=== PATIENT | male | born 1950 | race Caucasian/White ===

== ENCOUNTER 2020-04-09 08:52 | Emergency (ER) | payer MEDICARE, OTHER ==
[~2020-04-09] VITALS: Ht 182.9 cm; Wt 76.4 kg
[~2020-04-09 08:52] MED LIST: ALBU8HFA PO; ALLO100T PO; ASPI-611 PO; ATEN100T PO; ATOR20TA PO; MELO15TA13 PO; OMEP20CA15 PO; QUET25TA PO
[2020-04-09 09:29] LABS: BASOPHILS # (AUTO) 0.1 X10'3 (0-0.2); BASOPHILS % (AUTO) 0.8 % (0-1); EOSINOPHILS # (AUTO) 0.3 X10'3 (0-0.9); EOSINOPHILS % (AUTO) 5.3 % (0-6); HEMATOCRIT 39.4 % (42.0-52.0); HEMOGLOBIN 12.9 g/dl (14.0-17.9); LYMPHOCYTES # (AUTO) 1.9 X10'3 (1.1-4.8); LYMPHOCYTES % (AUTO) 29.4 % (21-51); MEAN CORPUSCULAR HGB CONC 32.8 g/dL (33.0-36.5); MEAN CORPUSCULAR VOLUME 91.3 FL (78-98); MEAN PLATELET VOLUME 7.5 FL (7.4-10.4); MONOCYTES # (AUTO) 0.7 X10'3 (0-0.9); MONOCYTES % (AUTO) 11.4 % (2-12); NEUTROPHILS # (AUTO) 3.4 X10'3 (1.8-7.7); NEUTROPHILS % (AUTO) 53.1 % (42-75); PLATELET COUNT 251 X10'3 (140-440); RED BLOOD COUNT 4.31 X10'6 (4.70-6.10); RED CELL DISTRIBUTION WIDTH 14.7 % (11.5-14.5); WHITE BLOOD COUNT 6.4 X10'3 (4.5-11.0)
[2020-04-09 09:39] LABS: ALANINE AMINOTRANSFERASE 16 U/L (12-78); ALBUMIN 3.1 G/DL (3.4-5.0); ALBUMIN/GLOBULIN RATIO 0.8 (1.1-1.5); ALKALINE PHOSPHATASE 97 IU/L (46-116); ANION GAP 9 (8-16); ASPARTATE AMINO TRANSFERASE 17 U/L (10-37); BILIRUBIN,TOTAL 0.5 MG/DL (0.1-1.0); BLOOD UREA NITROGEN 24 MG/DL (7-18); BUN/CREATININE RATIO 16.3 (5.4-32.0); CALCIUM 8.3 MG/DL (8.5-10.1); CHLORIDE 103 MMOL/L (99-107); CREATININE 1.47 MG/DL (0.60-1.10); GLUCOSE 100 MG/DL (70-104); LIPASE 169 U/L (73-393); POTASSIUM 4.2 MMOL/L (3.5-5.1); SODIUM 135 MMOL/L (135-145); TOTAL CARBON DIOXIDE 23.1 MMOL/L (24-32); TOTAL PROTEIN 6.8 G/DL (6.4-8.2); eGFR 47 ML/MIN
[2020-04-09 09:53] LABS: ETHANOL < 0.010 GM/DL (0.0-0.010)
--- NOTE | 2020-04-09 10:10 | NUR ---
Pt returned from CT no change in condtion.
[2020-04-09 11:11] VITALS: BP 164/91
== END 2020-04-09 11:00 | disposition home or self-care (01) ==
LOC: ER 08:53
DX: D64.9 Anemia, unspecified (principal); R10.9 Unspecified abdominal pain; N18.3 Chronic kidney disease, stage 3 (moderate); R19.7 Diarrhea, unspecified; I25.10 Atherosclerotic heart disease of native coronary artery without angina pectoris; E78.00 Pure hypercholesterolemia, unspecified; I25.2 Old myocardial infarction; J44.9 Chronic obstructive pulmonary disease, unspecified; K21.9 Gastro-esophageal reflux disease without esophagitis; I12.9 Hypertensive chronic kidney disease with stage 1 through stage 4 chronic kidney disease, or unspecified chronic kidney disease; G89.29 Other chronic pain; F41.9 Anxiety disorder, unspecified; R11.2 Nausea with vomiting, unspecified; F32.9 Major depressive disorder, single episode, unspecified; Z90.49 Acquired absence of other specified parts of digestive tract; Z86.73 Personal history of transient ischemic attack (TIA), and cerebral infarction without residual deficits; Z86.69 Personal history of other diseases of the nervous system and sense organs; Z86.19 Personal history of other infectious and parasitic diseases; Z98.890 Other specified postprocedural states; Z88.8 Allergy status to other drugs, medicaments and biological substances; Z79.82 Long term (current) use of aspirin; Z79.899 Other long term (current) drug therapy
CPT/HCPCS: 36415; 74176; 80053; 80320; 83690; 85025; 99284

== ENCOUNTER 2022-03-20 13:50 | Inpatient (IN) | payer OTHER, MEDICARE, MEDICAID ==
[~2022-03-20] VITALS: Ht 182.9 cm; Wt 86.1 kg
[2022-03-20] MEDS ORDERED: diltiazem 5mg/ml 5ml inj. IV ONE (14:10)
[2022-03-20] MEDS ORDERED: normal saline 1000ml 1,000 ML IV ONE (14:10)
[2022-03-20] MEDS ORDERED: proCHLORperazine 10 MG/2 ml inj IV ONE (14:20)
[2022-03-20 14:36] LABS: BASOPHILS # (AUTO) 0.1 X10'3 (0-0.2); EOSINOPHILS # (AUTO) 0.2 X10'3 (0-0.9); EOSINOPHILS % (AUTO) 2.9 % (0-6); HEMATOCRIT 44.9 % (42.0-52.0); HEMOGLOBIN 14.8 g/dl (14.0-17.9); LYMPHOCYTES # (AUTO) 1.5 X10'3 (1.1-4.8); LYMPHOCYTES % (AUTO) 22.1 % (21-51); MEAN CORPUSCULAR HEMOGLOBIN 31.6 PG (27.0-31.0); MEAN CORPUSCULAR HGB CONC 32.9 g/dL (33.0-36.5); MEAN PLATELET VOLUME 7.8 FL (7.4-10.4); MONOCYTES # (AUTO) 0.5 X10'3 (0-0.9); MONOCYTES % (AUTO) 6.8 % (2-12); NEUTROPHILS # (AUTO) 4.7 X10'3 (1.8-7.7); NEUTROPHILS % (AUTO) 67.2 % (42-75); PLATELET COUNT 220 X10'3 (140-440); RED BLOOD COUNT 4.67 X10'6 (4.70-6.10); RED CELL DISTRIBUTION WIDTH 14.9 % (11.5-14.5)
[2022-03-20] MEDS: diltiazem-NS 100mg/100ml 100 ML IV SCH (14:48)
[2022-03-20 14:51] LABS: ALANINE AMINOTRANSFERASE 19 U/L (12-78); ALBUMIN/GLOBULIN RATIO 0.9 (1.1-1.5); ALKALINE PHOSPHATASE 129 IU/L (46-116); ANION GAP 10 (8-16); ASPARTATE AMINO TRANSFERASE 23 U/L (10-37); BILIRUBIN,TOTAL 0.5 MG/DL (0.1-1.0); BLOOD UREA NITROGEN 25 MG/DL (7-18); BUN/CREATININE RATIO 10.5 (5.4-32.0); CALCIUM 9.3 MG/DL (8.5-10.1); CHLORIDE 104 MMOL/L (99-107); CREATININE 2.37 MG/DL (0.60-1.10); GLUCOSE 113 MG/DL (70-104); POTASSIUM 5.7 MMOL/L (3.5-5.1); SODIUM 140 MMOL/L (135-145); TOTAL CARBON DIOXIDE 26.1 MMOL/L (24-32); TOTAL PROTEIN 8.5 G/DL (6.4-8.2); eGFR 27 ML/MIN
[2022-03-20 14:59] LABS: ETHANOL < 0.010 GM/DL (0.0-0.010); MAGNESIUM 1.9 MG/DL (1.5-2.4)
--- NOTE | 2022-03-20 15:02 | NUR ---
ATTEMPTED TO GIVE CARDIZEM THROUGH LEFT HAND 20G FIELD START AFTER FLUSHING WITH NS PRIOR MED INFULATRATED INTO HAND. DR LUCIA NOTIFED. NEW IV STARTED WITH US BY MARIEL SAUCEDO TO RIGHT FA.
[2022-03-20] MEDS ORDERED: magnesium 2GM in 50ml NS 50 ML IV PRN (16:35)
[2022-03-20] MEDS ORDERED: magnesium Cl slow-release 64mg tablet PO PRN (16:35)
[2022-03-20] MEDS ORDERED: metoclopramide 5 mg/ml inj IV PRN (16:35)
[2022-03-20] MEDS ORDERED: POTASSIUM BICARB 20meq eff tab 20 MEQ TABLET.EFF PO PRN ×2 (16:35)
[2022-03-20] MEDS ORDERED: ondansetron 4mg rapidly disintigrating tab PO PRN (16:35)
[2022-03-20] MEDS ORDERED: magnesium 4gm in 100ml NS 100 ML IV PRN (16:35)
[2022-03-20] MEDS ORDERED: potassium CL 10mEq/100ml bag 100 ML IV PRN (16:35)
[2022-03-20 17:42] LABS: POTASSIUM 5.2 MMOL/L (3.5-5.1)
[2022-03-20] MEDS: docusate sod 100mg capsule PO SCH (20:00)
[2022-03-20] MEDS: K and/or MAG REPLACEMENT MC SCH (20:00)
--- NOTE | 2022-03-20 21:59 | NUR ---
PT'S SON, NICOLETTE, CALLED WANTING AN UPDATE ON THE PT. UPDATE PROVIDED. NICOLETTE WOULD APPRECIATE A FOLLOW-UP UPDATE AT 0800HRS VIA HIS CELL @ [phone].
[2022-03-21 01:54] LABS: BASOPHILS # (AUTO) 0.1 X10'3 (0-0.2); BASOPHILS % (AUTO) 0.5 % (0-1); EOSINOPHILS % (AUTO) 0.1 % (0-6); HEMATOCRIT 48.6 % (42.0-52.0); HEMOGLOBIN 16.1 g/dl (14.0-17.9); LYMPHOCYTES # (AUTO) 0.6 X10'3 (1.1-4.8); LYMPHOCYTES % (AUTO) 4.6 % (21-51); MEAN CORPUSCULAR HEMOGLOBIN 31.6 PG (27.0-31.0); MEAN CORPUSCULAR HGB CONC 33.2 g/dL (33.0-36.5); MEAN CORPUSCULAR VOLUME 95.3 FL (78-98); MEAN PLATELET VOLUME 7.6 FL (7.4-10.4); MONOCYTES # (AUTO) 0.5 X10'3 (0-0.9); MONOCYTES % (AUTO) 3.7 % (2-12); NEUTROPHILS # (AUTO) 11.9 X10'3 (1.8-7.7); NEUTROPHILS % (AUTO) 91.1 % (42-75); PLATELET COUNT 222 X10'3 (140-440)
[2022-03-21 02:04] LABS: ALBUMIN 4.2 G/DL (3.4-5.0); ANION GAP 18 (8-16); BLOOD UREA NITROGEN 23 MG/DL (7-18); BUN/CREATININE RATIO 9.7 (5.4-32.0); CALCIUM 9.7 MG/DL (8.5-10.1); CHLORIDE 106 MMOL/L (99-107); CREATININE 2.36 MG/DL (0.60-1.10); GLUCOSE 172 MG/DL (70-104); MAGNESIUM 1.8 MG/DL (1.5-2.4); SODIUM 149 MMOL/L (135-145); eGFR 27 ML/MIN
[2022-03-21] MEDS ORDERED: ondansetron/PF 4mg/2ml inj IV ONE (06:40)
[2022-03-21] MEDS ORDERED: niCARDipine-NS 40mg/200ml IVPB 200 ML IV SCH (06:40)
--- NOTE | 2022-03-21 06:40 | NUR ---
spoke to dr mc and informed that pt hr is 114 and is on cardizem 15 ml/hr ,as the assisgned rn kept it running at 15 since yesterday .pt bp is 202/110 mmHg also pt is vomiting recived reglan at 0433 without any improvement .as per md order nicardipine per pcu protocol keep bp in btw 150-140 mmHg,give zofran 8 mg iv once. will follow the md orders.
[2022-03-21] MEDS: diltiazem-NS 100mg/100ml 100 ML IV SCH ×2 (07:00→14:23)
[2022-03-21] MEDS ORDERED: METO-411 PO (07:57)
[2022-03-21] MEDS ORDERED: FLO0.4C PO (07:57)
[2022-03-21] MEDS ORDERED: TRAZ-251 PO (07:57)
[2022-03-21] MEDS ORDERED: LOSA50TA64 PO (07:57)
[2022-03-21] MEDS ORDERED: SERT-433 PO (07:57)
[2022-03-21] MEDS ORDERED: APIX5TAB3 PO (07:57)
[2022-03-21] MEDS ORDERED: LORA-949 PO (07:57)
[2022-03-21] MEDS ORDERED: QUET25TA36 PO (07:57)
[2022-03-21] MEDS ORDERED: OMEP20CA16 PO (07:57)
[2022-03-21] MEDS ORDERED: CLON0.1T2 PO (07:57)
[2022-03-21] MEDS ORDERED: ASPI-1397 PO (07:57)
[2022-03-21] MEDS ORDERED: FURO20TA4 PO (07:57)
[2022-03-21] MEDS ORDERED: ATOR40TA72 PO (07:57)
[2022-03-21] MEDS ORDERED: DIVA250T8 PO (07:57)
[2022-03-21] MEDS ORDERED: CARB1TAB37 PO (07:57)
[2022-03-21] MEDS: K and/or MAG REPLACEMENT MC SCH ×2 (08:00→20:00)
[2022-03-21] MEDS: docusate sod 100mg capsule PO SCH ×2 (08:00→20:41)
[2022-03-21] MEDS: tamsulosin 0.4mg capsule PO SCH (10:30)
[2022-03-21] MEDS: divalproex sod 250mg ER (24-hour) tablet PO SCH (10:30)
[2022-03-21] MEDS: sertraline 50mg tablet PO SCH (10:30)
[2022-03-21] MEDS: aspirin 81mg, enteric-coated 1 TAB TABLET.DR PO SCH (10:30)
--- NOTE | 2022-03-21 10:47 | NUR ---
NON ADMIN THE ORAL MEDS PT VOMIT RGT AWAY AFTER TAKING EVEN A SIP OF WATER MD ELAINE WAS NOTIFIED EARLIER THAT PT CAN'T KEEP ANYTHIG DOWN AND KEPT NPO.
[2022-03-21] MEDS: pantoprazole 40MG/NS 100ML BAG 100 ML IV SCH (10:59)
[2022-03-21] MEDS: ondansetron/PF 4mg/2ml inj IV PRN ×2 (11:13→20:37)
--- NOTE | 2022-03-21 11:14 | NUR ---
pt had 3 episode of vomiting since 0630 AM ,give zofran prn ,changed the bed linen and gown with help of tseven tenorio .
[2022-03-21] MEDS ORDERED: LIDOcaine 2% 10ml TOPICAL JELLY (Urojet) TP ONE (11:30)
[2022-03-21 12:28] LABS: CLARITY,URINE CLEAR (Clear); COLOR,URINE YELLOW (Yellow); GLUCOSE, URINE NEGATIVE (Neg); KETONES,URINE TRACE mg/dl (Neg); LEUKOCYTE ESTERASE ,URINE NEGATIVE (Neg); NITRITES, URINE NEGATIVE (Neg); OCCULT BLOOD,URINE TRACE-INTACT (Neg); PH,URINE 7.5 (4.8-8.0); PROTEIN,URINE 100 mg/dl (Neg); UA COLLECTION TYPE FOLEY CATH; UROBILINOGEN,URINE 0.2 E.U/dL (0.2-1.0)
[2022-03-21 12:33] LABS: SQUAMOUS EPITHELIAL CELL,UR FEW /LPF (FEW)
[2022-03-21 12:34] LABS: BACTERIA,URINE 1+ /HPF (Neg); RBC,URINE 0-2 /HPF (0-2); RENAL CELLS, URINE FEW /HPF; WBC,URINE 0-4 /HPF (0-4)
[2022-03-21] MEDS: carbidoba-levodopa 25-100mg tablet PO SCH ×2 (13:00→23:07)
[2022-03-21 14:00] VITALS: BP 129/65
[2022-03-21] MEDS: niCARDipine-NS 40mg/200ml IVPB 200 ML IV SCH ×2 (14:23→21:53)
[2022-03-21 18:00] VITALS: BP 131/63
[2022-03-21] MEDS: cloNIDine 0.1 mg tablet PO SCH (20:39)
[2022-03-21] MEDS: traZODone 50mg tablet PO SCH (20:40)
[2022-03-21] MEDS: QUEtiapine 25mg tablet PO SCH (20:40)
[2022-03-21 22:00] VITALS: BP 120/59
[2022-03-22 02:00] VITALS: BP 112/60
[2022-03-22 05:51] LABS: BASOPHILS % (AUTO) 0.2 % (0-1); EOSINOPHILS % (AUTO) 0 % (0-6); HEMATOCRIT 43.6 % (42.0-52.0); HEMOGLOBIN 14.3 g/dl (14.0-17.9); LYMPHOCYTES % (AUTO) 6.6 % (21-51); MEAN CORPUSCULAR HEMOGLOBIN 31.3 PG (27.0-31.0); MEAN CORPUSCULAR HGB CONC 32.9 g/dL (33.0-36.5); MEAN CORPUSCULAR VOLUME 95.2 FL (78-98); MEAN PLATELET VOLUME 7.7 FL (7.4-10.4); MONOCYTES # (AUTO) 1.4 X10'3 (0-0.9); NEUTROPHILS # (AUTO) 13.3 X10'3 (1.8-7.7); NEUTROPHILS % (AUTO) 84.2 % (42-75); PLATELET COUNT 259 X10'3 (140-440); RED BLOOD COUNT 4.58 X10'6 (4.70-6.10); RED CELL DISTRIBUTION WIDTH 15.1 % (11.5-14.5); WHITE BLOOD COUNT 15.8 X10'3 (4.5-11.0)
[2022-03-22 06:00] VITALS: BP 137/67
--- NOTE | 2022-03-22 06:00 | NUR ---
RECIEVED REPORT FROM DANIELLA
[2022-03-22 06:04] LABS: ALBUMIN 3.5 G/DL (3.4-5.0); ANION GAP 13 (8-16); BLOOD UREA NITROGEN 40 MG/DL (7-18); CHLORIDE 110 MMOL/L (99-107); CREATININE 4.01 MG/DL (0.60-1.10); GLUCOSE 142 MG/DL (70-104); MAGNESIUM 1.9 MG/DL (1.5-2.4); POTASSIUM 4.9 MMOL/L (3.5-5.1); SODIUM 147 MMOL/L (135-145); TOTAL CARBON DIOXIDE 23.6 MMOL/L (24-32); eGFR 15 ML/MIN
[2022-03-22] MEDS: diltiazem-NS 100mg/100ml 100 ML IV SCH ×2 (07:30→21:12)
[2022-03-22] MEDS: K and/or MAG REPLACEMENT MC SCH ×2 (08:00→20:00)
[2022-03-22] MEDS: carbidoba-levodopa 25-100mg tablet PO SCH ×3 (08:00→19:55)
[2022-03-22] MEDS: pantoprazole 40MG/NS 100ML BAG 100 ML IV SCH (09:10)
[2022-03-22] MEDS: sertraline 50mg tablet PO SCH (09:12)
[2022-03-22] MEDS: docusate sod 100mg capsule PO SCH ×2 (09:12→19:55)
[2022-03-22] MEDS: atorvastatin 20mg tablet PO SCH (09:12)
[2022-03-22] MEDS: tamsulosin 0.4mg capsule PO SCH (09:13)
[2022-03-22] MEDS: metoprolol succinate 25mg (24-HOUR) SR. Tablet PO SCH (09:13)
[2022-03-22] MEDS: aspirin 81mg, enteric-coated 1 TAB TABLET.DR PO SCH (09:13)
[2022-03-22] MEDS: cloNIDine 0.1 mg tablet PO SCH ×2 (09:14→19:55)
--- NOTE | 2022-03-22 09:44 | NUR ---
Orders to increase Cardizem gtt from 5 to 7 and DC cardene drip put in per Dr. Fraser.
[2022-03-22] MEDS: sodium chloride 0.45% 1,000 ML IV SCH ×3 (10:35→23:48)
[2022-03-22 11:00] VITALS: BP 109/63
[2022-03-22] MEDS: divalproex sod 250mg ER (24-hour) tablet PO SCH (13:05)
[2022-03-22 15:00] VITALS: BP 118/68
[2022-03-22 15:09] LABS: ALBUMIN 3.2 G/DL (3.4-5.0); ANION GAP 14 (8-16); BLOOD UREA NITROGEN 44 MG/DL (7-18); BUN/CREATININE RATIO 11.3 (5.4-32.0); CALCIUM 8.6 MG/DL (8.5-10.1); CHLORIDE 106 MMOL/L (99-107); CREATININE 3.91 MG/DL (0.60-1.10); GLUCOSE 102 MG/DL (70-104); SODIUM 141 MMOL/L (135-145); eGFR 15 ML/MIN
[2022-03-22 15:11] LABS: POTASSIUM 5.7 MMOL/L (3.5-5.1)
[2022-03-22] MEDS ORDERED: dextrose 50%-water 50ml dispensing syringe IV ONE (17:00)
[2022-03-22] MEDS ORDERED: calcium chloride 100 MG/1 ML inj IV ONE (17:00)
[2022-03-22] MEDS ORDERED: insulin regular, human 10 units/0.1 ml syringe SQ ONE (17:00)
[2022-03-22] MEDS ORDERED: albuterol 2.5 MG/3 ML nebule CONTNEB SCH (17:00)
[2022-03-22 18:00] VITALS: BP 126/69
--- NOTE | 2022-03-22 18:32 | NUR ---
REPORT GIVEN TO ALEJANDRA
[2022-03-22] MEDS: traZODone 50mg tablet PO SCH (19:55)
[2022-03-22] MEDS: QUEtiapine 25mg tablet PO SCH (19:55)
[2022-03-22 20:43] LABS: ANION GAP 10 (8-16); BLOOD UREA NITROGEN 45 MG/DL (7-18); CALCIUM 8.9 MG/DL (8.5-10.1); CHLORIDE 101 MMOL/L (99-107); CREATININE 3.47 MG/DL (0.60-1.10); GLUCOSE 118 MG/DL (70-104); POTASSIUM 4.9 MMOL/L (3.5-5.1); SODIUM 134 MMOL/L (135-145); TOTAL CARBON DIOXIDE 22.9 MMOL/L (24-32); eGFR 18 ML/MIN
[2022-03-23 06:00] VITALS: BP 139/68
[2022-03-23 06:23] LABS: EOSINOPHILS # (AUTO) 0.1 X10'3 (0-0.9)
[2022-03-23 06:25] LABS: BASOPHILS # (AUTO) 0.1 X10'3 (0-0.2); BASOPHILS % (AUTO) 0.5 % (0-1); EOSINOPHILS % (AUTO) 0.4 % (0-6); HEMATOCRIT 43.1 % (42.0-52.0); HEMOGLOBIN 14.1 g/dl (14.0-17.9); LYMPHOCYTES # (AUTO) 1.4 X10'3 (1.1-4.8); MEAN CORPUSCULAR HEMOGLOBIN 31.5 PG (27.0-31.0); MEAN CORPUSCULAR HGB CONC 32.6 g/dL (33.0-36.5); MEAN CORPUSCULAR VOLUME 96.7 FL (78-98); MEAN PLATELET VOLUME 8.3 FL (7.4-10.4); MONOCYTES # (AUTO) 0.8 X10'3 (0-0.9); MONOCYTES % (AUTO) 5.9 % (2-12); NEUTROPHILS # (AUTO) 11.7 X10'3 (1.8-7.7); NEUTROPHILS % (AUTO) 83.2 % (42-75); PLATELET COUNT 153 X10'3 (140-440); RED BLOOD COUNT 4.46 X10'6 (4.70-6.10); RED CELL DISTRIBUTION WIDTH 15.3 % (11.5-14.5); WHITE BLOOD COUNT 14.1 X10'3 (4.5-11.0)
[2022-03-23 06:48] LABS: ANION GAP 15 (8-16); BLOOD UREA NITROGEN 46 MG/DL (7-18); CALCIUM 8.7 MG/DL (8.5-10.1); CHLORIDE 101 MMOL/L (99-107); CREATININE 3.07 MG/DL (0.60-1.10); GLUCOSE 92 MG/DL (70-104); MAGNESIUM 1.7 MG/DL (1.5-2.4); SODIUM 138 MMOL/L (135-145); TOTAL CARBON DIOXIDE 22.4 MMOL/L (24-32); eGFR 20 ML/MIN
[2022-03-23 06:53] LABS: POTASSIUM 5.2 MMOL/L (3.5-5.1)
[2022-03-23] MEDS: metoprolol succinate 25mg (24-HOUR) SR. Tablet PO SCH ×2 (08:00→10:15)
[2022-03-23] MEDS: atorvastatin 20mg tablet PO SCH (08:00)
[2022-03-23] MEDS: docusate sod 100mg capsule PO SCH ×2 (08:00→20:41)
[2022-03-23] MEDS: aspirin 81mg, enteric-coated 1 TAB TABLET.DR PO SCH ×2 (08:00→10:15)
[2022-03-23] MEDS: tamsulosin 0.4mg capsule PO SCH (08:00)
[2022-03-23] MEDS: divalproex sod 250mg ER (24-hour) tablet PO SCH (08:00)
[2022-03-23] MEDS: K and/or MAG REPLACEMENT MC SCH ×2 (08:00→20:00)
[2022-03-23] MEDS: sertraline 50mg tablet PO SCH (08:00)
[2022-03-23] MEDS: pantoprazole 40MG/NS 100ML BAG 100 ML IV SCH (08:46)
[2022-03-23] MEDS: sodium chloride 0.45% 1,000 ML IV SCH (08:46)
[2022-03-23] MEDS: cloNIDine 0.1 mg tablet PO SCH ×2 (08:47→20:41)
[2022-03-23] MEDS: carbidoba-levodopa 25-100mg tablet PO SCH ×3 (08:48→20:41)
[2022-03-23] MEDS: diltiazem-NS 100mg/100ml 100 ML IV SCH (09:25)
--- NOTE | 2022-03-23 09:51 | NUR ---
PAGER ID: [phone] MESSAGE: Room: 5795B: Jenny: I was only successful in getting this pt to swallow his sinemet and clonidine PO. Otherwise, he would continue to hold pills in his mouth while still being able to swallow water and applesauce. LEWIS Crowder [id number]
[2022-03-23 11:00] VITALS: BP 119/59
[2022-03-23] MEDS ORDERED: valproate sod 250mg/5ml UD oral syrup PO ONE (11:25)
--- NOTE | 2022-03-23 13:40 | NUR ---
PAGER ID: [phone] MESSAGE: Room: 3025B: Jenny: Pt is on a nonrebreather after being found off of his oxygen. We're unable to get his oxygen up past 90%. Lung sounds are very diminished on the left side. Holding his 1300 sinemet. LEWIS Crowder [id number]
[2022-03-23] MEDS ORDERED: albuterol 2.5 MG/3 ML nebule CONTNEB ONE (13:50)
[2022-03-23] MEDS ORDERED: albuterol 2.5 MG/3 ML nebule NEB PRN (13:50)
[2022-03-23 14:13] LABS: ALBUMIN 2.7 G/DL (3.4-5.0); ALBUMIN/GLOBULIN RATIO 0.7 (1.1-1.5); ALKALINE PHOSPHATASE 73 IU/L (46-116); ANION GAP 15 (8-16); ASPARTATE AMINO TRANSFERASE 42 U/L (10-37); BILIRUBIN,TOTAL 0.9 MG/DL (0.1-1.0); BLOOD UREA NITROGEN 49 MG/DL (7-18); BUN/CREATININE RATIO 18.1 (5.4-32.0); CHLORIDE 101 MMOL/L (99-107); CREATININE 2.71 MG/DL (0.60-1.10); GLUCOSE 105 MG/DL (70-104); POTASSIUM 4.5 MMOL/L (3.5-5.1); SODIUM 135 MMOL/L (135-145); TOTAL CARBON DIOXIDE 19.3 MMOL/L (24-32); TOTAL PROTEIN 6.5 G/DL (6.4-8.2); eGFR 23 ML/MIN
[2022-03-23 14:20] LABS: ABG BASE EXCESS -3.8 mmol/L (-2.0-2.0); ABG HCO3 19.3 mmol/L (22.0-26.0); ABG OXYGEN SATURATION 90.6 % (94-97); ABG PCO2 (T) 29.6 mmHg (35.0-48.0); ABG PO2 (T) 59.4 mmHg (75.0-100.0); FCOHb 0.3 % (0.0-3.9); FLOW 15 L/min; FMetHb 0.3 % (0.0-1.5); FO2Hb 90.1 % (94-97)
[2022-03-23] MEDS ORDERED: furosemide 20 MG/2 ML vial IV ONE (14:20)
[2022-03-23 14:30] LABS: ALANINE AMINOTRANSFERASE < 6 U/L (12-78)
[2022-03-23] MEDS: ipratropium/albuterol 3ml nebule NEB SCH ×3 (14:33→23:52)
[2022-03-23 15:00] VITALS: BP 107/55
[2022-03-23 16:34] LABS: D-DIMER > 35.20 MG/L FEU (0-0.50)
[2022-03-23 18:00] VITALS: BP 159/104
[2022-03-23] MEDS: traZODone 50mg tablet PO SCH (20:41)
[2022-03-23] MEDS: QUEtiapine 25mg tablet PO SCH (20:41)
[2022-03-23 22:00] VITALS: BP 142/79
[2022-03-24] MEDS: diltiazem-NS 100mg/100ml 100 ML IV SCH (00:35)
[2022-03-24 02:00] VITALS: BP 132/86
[2022-03-24] MEDS: ipratropium/albuterol 3ml nebule NEB SCH ×6 (03:11→23:02)
[2022-03-24 06:00] VITALS: BP 165/76
[2022-03-24 06:20] LABS: ALBUMIN 2.8 G/DL (3.4-5.0); ANION GAP 11 (8-16); BLOOD UREA NITROGEN 48 MG/DL (7-18); BUN/CREATININE RATIO 21.1 (5.4-32.0); CALCIUM 8.4 MG/DL (8.5-10.1); CHLORIDE 102 MMOL/L (99-107); CREATININE 2.27 MG/DL (0.60-1.10); GLUCOSE 99 MG/DL (70-104); MAGNESIUM 1.7 MG/DL (1.5-2.4); SODIUM 136 MMOL/L (135-145); TOTAL CARBON DIOXIDE 23.2 MMOL/L (24-32); eGFR 29 ML/MIN
[2022-03-24 06:22] LABS: POTASSIUM 4.7 MMOL/L (3.5-5.1)
[2022-03-24] MEDS: pantoprazole 40MG/NS 100ML BAG 100 ML IV SCH (07:46)
[2022-03-24] MEDS: valproate sod 250mg/5ml UD oral syrup PO SCH (07:46)
[2022-03-24] MEDS: atorvastatin 20mg tablet PO SCH (07:47)
[2022-03-24] MEDS: aspirin 81mg, enteric-coated 1 TAB TABLET.DR PO SCH (07:47)
[2022-03-24] MEDS: cloNIDine 0.1 mg tablet PO SCH ×2 (07:47→20:19)
[2022-03-24] MEDS: docusate sod 100mg capsule PO SCH ×2 (07:47→20:19)
[2022-03-24] MEDS: tamsulosin 0.4mg capsule PO SCH (07:48)
[2022-03-24] MEDS: carbidoba-levodopa 25-100mg tablet PO SCH ×3 (07:48→20:19)
[2022-03-24] MEDS: sertraline 50mg tablet PO SCH (07:48)
[2022-03-24] MEDS: metoprolol succinate 25mg (24-HOUR) SR. Tablet PO SCH (07:48)
[2022-03-24] MEDS: K and/or MAG REPLACEMENT MC SCH ×2 (07:57→20:00)
[2022-03-24] MEDS ORDERED: furosemide 20 MG/2 ML vial IV ONE (08:40)
[2022-03-24] MEDS ORDERED: heparin 25,000 UNIT/250ml bag 250 ML IV SCH (08:40)
[2022-03-24] MEDS ORDERED: heparin 10,000 units/1 ML INJ IV PRN (08:40)
[2022-03-24] MEDS ORDERED: heparin 10,000 units/1 ML INJ IV ONE (08:40)
--- NOTE | 2022-03-24 08:50 | NUR ---
PAGER ID: [phone] MESSAGE: Room: 411: Jenny: Anaerobic blood culture from 03/23 is positive for gram positive cocci in clusters. LEWIS Crowder [id number]
[2022-03-24] MEDS: diltiazem 30mg tablet PO SCH ×3 (09:43→20:19)
--- NOTE | 2022-03-24 10:33 | NUR ---
PAGER ID: [phone] MESSAGE: Room: 3025B: Itzer: Critical result: Positive blood culture in aerobic bottle. Gram positive cocci in clusters. LEWIS Crowder [id number]
[2022-03-24 11:00] VITALS: BP 129/60
[2022-03-24] MEDS: levoFLOXACIN-Levaquin 750MG/D5 150 ML IV SCH (11:10)
[2022-03-24 11:48] LABS: BASOPHILS % (AUTO) 0.3 % (0-1); EOSINOPHILS # (AUTO) 0.1 X10'3 (0-0.9); HEMOGLOBIN 13.4 g/dl (14.0-17.9); MEAN CORPUSCULAR VOLUME 95.2 FL (78-98)
[2022-03-24 11:51] LABS: EOSINOPHILS % (AUTO) 0.5 % (0-6); HEMATOCRIT 39.7 % (42.0-52.0); LYMPHOCYTES # (AUTO) 1.1 X10'3 (1.1-4.8); LYMPHOCYTES % (AUTO) 12.3 % (21-51); MEAN CORPUSCULAR HEMOGLOBIN 32.1 PG (27.0-31.0); MEAN CORPUSCULAR HGB CONC 33.8 g/dL (33.0-36.5); MEAN PLATELET VOLUME 8.2 FL (7.4-10.4); MONOCYTES # (AUTO) 0.8 X10'3 (0-0.9); MONOCYTES % (AUTO) 8.9 % (2-12); NEUTROPHILS # (AUTO) 7.2 X10'3 (1.8-7.7); RED BLOOD COUNT 4.17 X10'6 (4.70-6.10); RED CELL DISTRIBUTION WIDTH 14.5 % (11.5-14.5); WHITE BLOOD COUNT 9.2 X10'3 (4.5-11.0)
[2022-03-24 12:16] LABS: LARGE PLATELETS FEW; PLATELET ESTIMATE NORMAL
--- NOTE | 2022-03-24 12:30 | NUR ---
PAGER ID: [phone] MESSAGE: Room: 3025B: Itzer: Critical Result: Positive blood cultures. Gram positive cocci in clusters in the anaerobic bottle. Lakesha Fraser [id number]
[2022-03-24 15:00] VITALS: BP 105/67
[2022-03-24] MEDS ORDERED: PERFLUTREN PROTEIN-A MICROSPHR (Optison) 0.22 MG/ML 3ML VIAL IV ONE (17:15)
[2022-03-24 18:00] VITALS: BP 114/72
--- NOTE | 2022-03-24 18:25 | NUR ---
Patient in room U 3025. I have received report from Lakesha SAUCEDO and had the opportunity to ask questions and assume patient care. Addendum: 03/24/22 at 1826 by Komal Phillip RN Amended: Links added.
--- NOTE | 2022-03-24 18:30 | NUR ---
Patient in room U 3025. I have received report from DONNA SAUCEDO and had the opportunity to ask questions and assume patient care. Addendum: 03/24/22 at 1857 by Komal Phillip RN Amended: Links added.
[2022-03-24] MEDS: traZODone 50mg tablet PO SCH (20:19)
[2022-03-24] MEDS: QUEtiapine 25mg tablet PO SCH (20:19)
[2022-03-24] MEDS: furosemide 20 MG/2 ML vial IV SCH (20:20)
--- NOTE | 2022-03-24 20:20 | NUR ---
Pt. awake alert to own name and place- reoriented patient to place and events. No c/o chest pain at this time. f/c draining to gravity; with adequate volume noted in the collecting bag. Call light within reach and bed in low position. Addendum: 03/25/22 at 0132 by Komal Phillip RN Amended: Links added.
[2022-03-24 22:00] VITALS: BP 135/69
[2022-03-25 02:00] VITALS: BP 147/77
[2022-03-25] MEDS: diltiazem 30mg tablet PO SCH ×4 (02:05→20:55)
[2022-03-25] MEDS: ipratropium/albuterol 3ml nebule NEB SCH ×6 (03:03→23:38)
[2022-03-25 07:00] VITALS: BP 158/60
[2022-03-25 07:01] LABS: BASOPHILS % (AUTO) 0.4 % (0-1); EOSINOPHILS # (AUTO) 0.1 X10'3 (0-0.9); EOSINOPHILS % (AUTO) 2.1 % (0-6); HEMOGLOBIN 13.4 g/dl (14.0-17.9); LYMPHOCYTES # (AUTO) 1.1 X10'3 (1.1-4.8); MEAN CORPUSCULAR HEMOGLOBIN 31.6 PG (27.0-31.0); MEAN CORPUSCULAR HGB CONC 33.5 g/dL (33.0-36.5); MEAN CORPUSCULAR VOLUME 94.3 FL (78-98); MEAN PLATELET VOLUME 8.4 FL (7.4-10.4); MONOCYTES # (AUTO) 0.7 X10'3 (0-0.9); MONOCYTES % (AUTO) 11.5 % (2-12); NEUTROPHILS # (AUTO) 4.1 X10'3 (1.8-7.7); PLATELET COUNT 203 X10'3 (140-440); RED BLOOD COUNT 4.24 X10'6 (4.70-6.10); RED CELL DISTRIBUTION WIDTH 14.6 % (11.5-14.5)
[2022-03-25 07:18] LABS: ALBUMIN 2.7 G/DL (3.4-5.0); ANION GAP 15 (8-16); BLOOD UREA NITROGEN 48 MG/DL (7-18); BUN/CREATININE RATIO 22.9 (5.4-32.0); CALCIUM 8.3 MG/DL (8.5-10.1); CHLORIDE 100 MMOL/L (99-107); GLUCOSE 90 MG/DL (70-104); POTASSIUM 3.4 MMOL/L (3.5-5.1); SODIUM 140 MMOL/L (135-145); TOTAL CARBON DIOXIDE 25.2 MMOL/L (24-32); eGFR 31 ML/MIN
[2022-03-25] MEDS: K and/or MAG REPLACEMENT MC SCH ×3 (08:03→19:44)
[2022-03-25] MEDS: furosemide 20 MG/2 ML vial IV SCH (08:34)
[2022-03-25] MEDS: acetaminophen 325mg tablet PO PRN ×2 (08:34→14:24)
[2022-03-25] MEDS: metoprolol succinate 25mg (24-HOUR) SR. Tablet PO SCH (08:34)
[2022-03-25] MEDS: pantoprazole 40MG/NS 100ML BAG 100 ML IV SCH (08:34)
[2022-03-25] MEDS: atorvastatin 20mg tablet PO SCH (08:35)
[2022-03-25] MEDS: tamsulosin 0.4mg capsule PO SCH (08:35)
[2022-03-25] MEDS: sertraline 50mg tablet PO SCH (08:35)
[2022-03-25] MEDS: docusate sod 100mg capsule PO SCH ×2 (08:35→20:56)
[2022-03-25] MEDS: aspirin 81mg, enteric-coated 1 TAB TABLET.DR PO SCH (08:35)
[2022-03-25] MEDS: cloNIDine 0.1 mg tablet PO SCH ×2 (08:35→20:55)
[2022-03-25] MEDS ORDERED: vancomycin inj 1,000 MG in normal saline 250ml IV soln 250 ML IV ONE (09:20)
[2022-03-25] MEDS: valproate sod 250mg/5ml UD oral syrup PO SCH (09:36)
[2022-03-25] MEDS: carbidoba-levodopa 25-100mg tablet PO SCH ×3 (09:37→20:55)
[2022-03-25 11:00] VITALS: BP 89/48
[2022-03-25] MEDS: VANCOMYCIN 750MG IV in NS 250 ML IV SCH (12:10)
[2022-03-25] MEDS ORDERED: magnesium 4gm in 100ml NS 100 ML IV PRN (12:35)
[2022-03-25] MEDS ORDERED: magnesium Cl slow-release 64mg tablet PO PRN (12:35)
[2022-03-25] MEDS ORDERED: magnesium 2GM in 50ml NS 50 ML IV PRN (12:35)
[2022-03-25] MEDS ORDERED: POTASSIUM BICARB 20meq eff tab 20 MEQ TABLET.EFF PO PRN ×2 (12:35)
[2022-03-25] MEDS: potassium CL 10mEq/100ml bag 100 ML IV PRN ×4 (14:22→21:10)
[2022-03-25 15:00] VITALS: BP 127/65
[2022-03-25 18:00] VITALS: BP 144/74
--- NOTE | 2022-03-25 18:28 | NUR ---
Patient in room PCU 3025B. I have received report from LEWIS Collier and had the opportunity to ask questions and assume patient care.
[2022-03-25] MEDS: lactose-reduced food (Ensure Enlive) - 237ml bottle PO SCH (18:30)
[2022-03-25] MEDS: QUEtiapine 25mg tablet PO SCH (20:55)
[2022-03-25] MEDS: traZODone 50mg tablet PO SCH (20:55)
[2022-03-25 22:00] VITALS: BP 152/62
[2022-03-26] VITALS (8 sets, daily range): BP systolic 77–185; BP diastolic 54–94
[2022-03-26] MEDS: diltiazem 30mg tablet PO SCH (02:37)
[2022-03-26] MEDS: ipratropium/albuterol 3ml nebule NEB SCH ×6 (03:35→22:40)
--- NOTE | 2022-03-26 06:21 | NUR ---
Problems reprioritized. Patient report given, questions answered & plan of care reviewed with LEWIS Collier.
[2022-03-26 07:02] LABS: BASOPHILS % (AUTO) 0.9 % (0-1); EOSINOPHILS # (AUTO) 0.2 X10'3 (0-0.9); HEMATOCRIT 39.8 % (42.0-52.0); HEMOGLOBIN 13.3 g/dl (14.0-17.9); LYMPHOCYTES # (AUTO) 1.1 X10'3 (1.1-4.8); LYMPHOCYTES % (AUTO) 24.7 % (21-51); MEAN CORPUSCULAR HEMOGLOBIN 31.6 PG (27.0-31.0); MEAN CORPUSCULAR HGB CONC 33.5 g/dL (33.0-36.5); MEAN CORPUSCULAR VOLUME 94.3 FL (78-98); MEAN PLATELET VOLUME 8.2 FL (7.4-10.4); MONOCYTES # (AUTO) 0.6 X10'3 (0-0.9); MONOCYTES % (AUTO) 14.2 % (2-12); NEUTROPHILS # (AUTO) 2.4 X10'3 (1.8-7.7); NEUTROPHILS % (AUTO) 55.2 % (42-75); PLATELET COUNT 192 X10'3 (140-440); RED BLOOD COUNT 4.22 X10'6 (4.70-6.10); RED CELL DISTRIBUTION WIDTH 14.6 % (11.5-14.5); WHITE BLOOD COUNT 4.3 X10'3 (4.5-11.0)
[2022-03-26 07:39] LABS: ALANINE AMINOTRANSFERASE 7 U/L (12-78); ALBUMIN 2.6 G/DL (3.4-5.0); ALBUMIN/GLOBULIN RATIO 0.6 (1.1-1.5); ALKALINE PHOSPHATASE 77 IU/L (46-116); ANION GAP 13 (8-16); ASPARTATE AMINO TRANSFERASE 22 U/L (10-37); BILIRUBIN,TOTAL 0.5 MG/DL (0.1-1.0); BLOOD UREA NITROGEN 47 MG/DL (7-18); BUN/CREATININE RATIO 24.5 (5.4-32.0); CALCIUM 8.4 MG/DL (8.5-10.1); CHLORIDE 107 MMOL/L (99-107); CREATININE 1.92 MG/DL (0.60-1.10); GLUCOSE 95 MG/DL (70-104); MAGNESIUM 2.2 MG/DL (1.5-2.4); POTASSIUM 3.7 MMOL/L (3.5-5.1); SODIUM 143 MMOL/L (135-145); TOTAL CARBON DIOXIDE 22.7 MMOL/L (24-32); TOTAL PROTEIN 6.9 G/DL (6.4-8.2); eGFR 35 ML/MIN
[2022-03-26] MEDS: lactose-reduced food (Ensure Enlive) - 237ml bottle PO SCH (08:00)
[2022-03-26] MEDS: K and/or MAG REPLACEMENT MC SCH ×2 (08:00→19:04)
[2022-03-26] MEDS: aspirin 81mg, enteric-coated 1 TAB TABLET.DR PO SCH (08:54)
[2022-03-26] MEDS: atorvastatin 20mg tablet PO SCH (08:54)
[2022-03-26] MEDS: carbidoba-levodopa 25-100mg tablet PO SCH ×3 (08:54→21:05)
[2022-03-26] MEDS: docusate sod 100mg capsule PO SCH ×2 (08:54→21:05)
[2022-03-26] MEDS: diltiazem CD 120mg capsule (once-daily) PO SCH (08:54)
[2022-03-26] MEDS: cloNIDine 0.1 mg tablet PO SCH ×2 (08:54→20:00)
[2022-03-26] MEDS: tamsulosin 0.4mg capsule PO SCH (08:54)
[2022-03-26] MEDS: sertraline 50mg tablet PO SCH (08:54)
[2022-03-26] MEDS: levoFLOXACIN-Levaquin 750MG/D5 150 ML IV SCH (08:54)
[2022-03-26] MEDS: valproate sod 250mg/5ml UD oral syrup PO SCH (08:55)
[2022-03-26] MEDS: pantoprazole 40mg Tablet.DR PO SCH (08:55)
[2022-03-26] MEDS: metoprolol succinate 25mg (24-HOUR) SR. Tablet PO SCH (08:55)
[2022-03-26] MEDS: furosemide 20 MG/2 ML vial IV SCH (08:55)
[2022-03-26] MEDS: VANCOMYCIN 750MG IV in NS 250 ML IV SCH (11:05)
--- NOTE | 2022-03-26 14:59 | NUR ---
PAGER ID: [phone] MESSAGE: 3025B Marcus Alvarado: Pos blood cultures - Left hand 03/25 draw gram + rods resembling githeroids. 1 bottle, arobic + at 30hrs Amira BLAKE Addendum: 03/26/22 at 1505 by Amira Lewis RN DIPHTHEROIDS*
[2022-03-26] MEDS: traZODone 50mg tablet PO SCH (21:05)
[2022-03-26] MEDS: QUEtiapine 25mg tablet PO SCH (21:06)
[2022-03-27 02:00] VITALS: BP 165/83
[2022-03-27] MEDS: ipratropium/albuterol 3ml nebule NEB SCH ×4 (03:15→14:34)
[2022-03-27 06:05] LABS: BASOPHILS # (AUTO) 0.1 X10'3 (0-0.2); EOSINOPHILS # (AUTO) 0.2 X10'3 (0-0.9); EOSINOPHILS % (AUTO) 4.4 % (0-6); HEMATOCRIT 44.4 % (42.0-52.0); HEMOGLOBIN 14.9 g/dl (14.0-17.9); LYMPHOCYTES # (AUTO) 0.6 X10'3 (1.1-4.8); LYMPHOCYTES % (AUTO) 11.7 % (21-51); MEAN CORPUSCULAR HGB CONC 33.5 g/dL (33.0-36.5); MEAN CORPUSCULAR VOLUME 95.6 FL (78-98); MEAN PLATELET VOLUME 8.4 FL (7.4-10.4); MONOCYTES # (AUTO) 0.6 X10'3 (0-0.9); MONOCYTES % (AUTO) 11.4 % (2-12); NEUTROPHILS # (AUTO) 3.6 X10'3 (1.8-7.7); NEUTROPHILS % (AUTO) 71.5 % (42-75); PLATELET COUNT 185 X10'3 (140-440); RED BLOOD COUNT 4.65 X10'6 (4.70-6.10); RED CELL DISTRIBUTION WIDTH 14.6 % (11.5-14.5)
[2022-03-27 06:26] LABS: ALBUMIN 2.9 G/DL (3.4-5.0); ALBUMIN/GLOBULIN RATIO 0.6 (1.1-1.5); ALKALINE PHOSPHATASE 85 IU/L (46-116); ANION GAP 10 (8-16); ASPARTATE AMINO TRANSFERASE 18 U/L (10-37); BILIRUBIN,TOTAL 0.6 MG/DL (0.1-1.0); BLOOD UREA NITROGEN 38 MG/DL (7-18); BUN/CREATININE RATIO 22.5 (5.4-32.0); CALCIUM 8.7 MG/DL (8.5-10.1); CHLORIDE 103 MMOL/L (99-107); CREATININE 1.69 MG/DL (0.60-1.10); GLUCOSE 93 MG/DL (70-104); POTASSIUM 3.9 MMOL/L (3.5-5.1); SODIUM 136 MMOL/L (135-145); TOTAL CARBON DIOXIDE 22.9 MMOL/L (24-32); TOTAL PROTEIN 7.6 G/DL (6.4-8.2); eGFR 40 ML/MIN
[2022-03-27 06:30] VITALS: BP 122/56
[2022-03-27 06:40] LABS: ALANINE AMINOTRANSFERASE < 6 U/L (12-78)
[2022-03-27] MEDS: furosemide 20 MG/2 ML vial IV SCH (07:46)
[2022-03-27] MEDS: docusate sod 100mg capsule PO SCH (07:46)
[2022-03-27] MEDS: diltiazem CD 120mg capsule (once-daily) PO SCH (07:46)
[2022-03-27] MEDS: tamsulosin 0.4mg capsule PO SCH (07:46)
[2022-03-27] MEDS: aspirin 81mg, enteric-coated 1 TAB TABLET.DR PO SCH (07:46)
[2022-03-27] MEDS: pantoprazole 40mg Tablet.DR PO SCH (07:46)
[2022-03-27] MEDS: valproate sod 250mg/5ml UD oral syrup PO SCH (07:47)
[2022-03-27] MEDS: carbidoba-levodopa 25-100mg tablet PO SCH ×2 (07:50→14:23)
[2022-03-27] MEDS: atorvastatin 20mg tablet PO SCH (07:50)
[2022-03-27] MEDS: sertraline 50mg tablet PO SCH (07:50)
[2022-03-27] MEDS: metoprolol succinate 25mg (24-HOUR) SR. Tablet PO SCH ×2 (08:00→10:17)
[2022-03-27] MEDS: lactose-reduced food (Ensure Enlive) - 237ml bottle PO SCH ×4 (08:00→13:00)
[2022-03-27] MEDS: K and/or MAG REPLACEMENT MC SCH (08:00)
[2022-03-27] MEDS: cloNIDine 0.1 mg tablet PO SCH ×3 (08:00→10:17)
[2022-03-27] MEDS ORDERED: IPRA3AMP9 NEB (08:11)
[2022-03-27] MEDS ORDERED: CARCD120C PO (08:11)
[2022-03-27] MEDS ORDERED: LEVO500T90 PO (08:13)
[2022-03-27 10:27] LABS: ANION GAP 12 (8-16); BLOOD UREA NITROGEN 35 MG/DL (7-18); CALCIUM 8.8 MG/DL (8.5-10.1); CHLORIDE 100 MMOL/L (99-107); CREATININE 1.67 MG/DL (0.60-1.10); GLUCOSE 109 MG/DL (70-104); POTASSIUM 4.1 MMOL/L (3.5-5.1); SODIUM 136 MMOL/L (135-145); eGFR 41 ML/MIN
[2022-03-27 11:00] VITALS: BP 102/72
--- NOTE | 2022-03-27 15:48 | NUR ---
Attempted to call discharge instructions to number given by Meseret, . Message left on voicemail. Addendum: 03/27/22 at 1602 by Cherry Mustafa RN Report called to Amarilis
[2022-03-27 16:00] VITALS: BP 104/70
--- NOTE | 2022-03-27 17:00 | NUR ---
Patient discharged to assisted living. Patient taken via wheelchair by Gaurang with all belongings on person
[2022-03-28] MEDS ORDERED: VANCOMYCIN LEVEL IV ONE (09:30)
== END 2022-03-27 17:00 | disposition home health service (06) | DRG 871 ==
LOC: ER 13:50 → ED HOLD 16:36 → PCU 3S 03-21 13:51
PROVIDERS: ADMIT Internal Medicine; ATTEND Internal Medicine
PROC: 5A0935A Assistance with Respiratory Ventilation, Less than 24 Consecutive Hours, High Flow/Velocity Cannula (ICD-10-PCS; principal; 2022-03-23)
PROC: 5A0935A Assistance with Respiratory Ventilation, Less than 24 Consecutive Hours, High Flow/Velocity Cannula (ICD-10-PCS; 2022-03-24)
PROC: CB121ZZ Planar Nuclear Medicine Imaging of Lungs and Bronchi using Technetium 99m (Tc-99m) (ICD-10-PCS; 2022-03-24)
PROC: 5A0935A Assistance with Respiratory Ventilation, Less than 24 Consecutive Hours, High Flow/Velocity Cannula (ICD-10-PCS; 2022-03-25)
DX: A41.2 Sepsis due to unspecified staphylococcus (principal); N17.0 Acute kidney failure with tubular necrosis; J96.01 Acute respiratory failure with hypoxia; J18.9 Pneumonia, unspecified organism; I13.0 Hypertensive heart and chronic kidney disease with heart failure and stage 1 through stage 4 chronic kidney disease, or unspecified chronic kidney disease; I50.30 Unspecified diastolic (congestive) heart failure; I48.91 Unspecified atrial fibrillation; N18.9 Chronic kidney disease, unspecified; M10.9 Gout, unspecified; G20 Parkinson's disease; N40.0 Benign prostatic hyperplasia without lower urinary tract symptoms; B18.2 Chronic viral hepatitis C; E78.00 Pure hypercholesterolemia, unspecified; E86.0 Dehydration; F02.80 Dementia in other diseases classified elsewhere, unspecified severity, without behavioral disturbance, psychotic disturbance, mood disturbance, and anxiety; I25.10 Atherosclerotic heart disease of native coronary artery without angina pectoris; J43.9 Emphysema, unspecified; K21.9 Gastro-esophageal reflux disease without esophagitis; E87.5 Hyperkalemia; F32.A Depression, unspecified; F10.10 Alcohol abuse, uncomplicated; K57.30 Diverticulosis of large intestine without perforation or abscess without bleeding; K42.9 Umbilical hernia without obstruction or gangrene; K44.9 Diaphragmatic hernia without obstruction or gangrene; F41.9 Anxiety disorder, unspecified; K40.90 Unilateral inguinal hernia, without obstruction or gangrene, not specified as recurrent; G89.29 Other chronic pain; R41.89 Other symptoms and signs involving cognitive functions and awareness; Z79.899 Other long term (current) drug therapy; Z86.73 Personal history of transient ischemic attack (TIA), and cerebral infarction without residual deficits; I25.2 Old myocardial infarction; Z87.442 Personal history of urinary calculi; Z90.49 Acquired absence of other specified parts of digestive tract; Z88.5 Allergy status to narcotic agent; Z82.49 Family history of ischemic heart disease and other diseases of the circulatory system; Z79.82 Long term (current) use of aspirin; Z90.79 Acquired absence of other genital organ(s)
CPT/HCPCS: 36415; 36600; 71045; 74176; 78582; 80048; 80053; 80320; 81001; 82803; 82948; 83605; 83735; 83880; 84132; 84145; 84484; 85008; 85018; 85025; 85379; 85610; 87040; 87077; 87186; 92508; 92616; 93306; 94640; 94760; 96361; 96374; 96375; 97110; 97116; 97162; 97530; 99285; A4314; A4349; A4615; A7015; A9539; A9540; C9113; G0378; J0780; J1644; J1815; J1940; J1956; J2405; J2765; J3370; J3480; J3490; J7030; J7040; J7050; J7120